=== PATIENT | female | born 2000 | race Caucasian/White ===

== ENCOUNTER 2021-01-25 19:37 | Emergency (ER) | payer MEDICAID ==
[~2021-01-25] VITALS: Ht 149.9 cm; Wt 73.0 kg
[2021-01-25 19:56] VITALS: BP 120/69
[2021-01-25] MEDS ORDERED: IBUP-2029 MT (20:23)
[2021-01-25] MEDS ORDERED: AMOX-494 MT (20:23)
[2021-01-25] MEDS ORDERED: ACETAMINOPHEN 325MG TABLET PO ONE (20:30)
== END 2021-01-25 20:39 | disposition home or self-care (01) ==
LOC: ER 19:37
DX: H66.91 Otitis media, unspecified, right ear (principal)
CPT/HCPCS: 99283